=== PATIENT | female | born 1990 | race American Indian/Alaskan Native ===

== ENCOUNTER 2018-05-14 02:23 | Emergency (ER) | payer SELFPAY ==
[2018-05-14 02:35] VITALS: BMI 26.4
[2018-05-14 02:36] VITALS: TEMP 98
--- NOTE | 2018-05-14 02:58 | ED PDOC ---
Arrival/HPI - General Chief Complaint: Palpitations Time Seen by Provider: 05/14/18 02:33 Historian: Patient - History of Present Illness Narrative History of Present Illness (Text): 05/14/18 02:53 Angie Zamora is a 27 year old female who presents to the Emergency department complaining of palpitations. Patient states she has been experiencing cold-like symptoms for over a week and took Theraflu this evening. Patient states she went to bed and began experiencing palpitations, shaking, and generalized weakness. Patient reports a remote history of anxiety and denies any family history of cardiac disease. Patient denies any fever, chills, chest pain, shortness of breath, nausea, vomiting, neck pain, headache, dizziness, or any other complaints. Symptom Onset: Gradual Symptom Course: Unchanged Activities at Onset: Light Context: Home Past Medical History - Provider Review Nursing Documentation Reviewed: Yes - Infectious Disease Hx of Infectious Diseases: None - Renal Hx Kidney Stones: Yes - Psychiatric Hx Substance Use: No - Surgical History Other/Comment: colonscopy/endoscopy - Anesthesia Hx Anesthesia: Yes Family/Social History - Physician Review Nursing Documentation Reviewed: Yes Family/Social History: Unknown Family HX Smoking Status: Never Smoked Hx Alcohol Use: Yes Frequency of alcohol use: Socially Hx Substance Use: No Allergies/Home Meds Allergies/Adverse Reactions: Allergies seafood Allergy (Uncoded 05/14/18 02:40) RASH Home Medications: Home Meds Medication Instructions Recorded Confirmed RX: No Known Home Med 05/14/18 05/14/18 Review of Systems - Physician Review All systems were reviewed & negative as marked: Yes - Review of Systems Constitutional: Other (+generalized weakness, +shaking). absent: Fevers Eyes: Normal ENT: Normal Respiratory: Normal. absent: SOB, Cough Cardiovascular: Palpitations. absent: Chest Pain Gastrointestinal: Normal. absent: Abdominal Pain, Diarrhea, Nausea, Vomiting Genitourinary Female: Normal. absent: Dysuria, Frequency, Hematuria, Urine Output Changes Musculoskeletal: Normal Skin: Normal Neurological: Normal Endocrine: Normal Hemo/Lymphatic: Normal Psychiatric: Normal Physical Exam Vital Signs Reviewed: Yes Vital Signs Temp Pulse Resp BP Pulse Ox 05/14/18 02:35 98.0 F 132 H 20 127/85 100 Temperature: Afebrile Blood Pressure: Normal Pulse: Tachycardic Respiratory Rate: Normal Appearance: Positive for: Well-Appearing, Non-Toxic, Comfortable Pain Distress: None Mental Status: Positive for: Alert and Oriented X 3 - Systems Exam Head: Present: Atraumatic, Normocephalic Pupils: Present: PERRL Extroacular Muscles: Present: EOMI Conjunctiva: Present: Normal Mouth: Present: Moist Mucous Membranes Neck: Present: Normal Range of Motion Respiratory/Chest: Present: Clear to Auscultation, Good Air Exchange. No: Respiratory Distress, Accessory Muscle Use Cardiovascular: Present: Regular Rate and Rhythm, Normal S1, S2. No: Murmurs Abdomen: No: Tenderness, Distention, Peritoneal Signs Back: Present: Normal Inspection Upper Extremity: Present: Normal Inspection. No: Cyanosis, Edema Lower Extremity: Present: Normal Inspection. No: Edema Neurological: Present: GCS=15, CN II-XII Intact, Speech Normal Skin: Present: Warm, Dry, Normal Color. No: Rashes Psychiatric: Present: Alert, Oriented x 3, Normal Insight, Normal Concentration Medical Decision Making ED Course and Treatment: 05/14/18 02:54 Impression: 27 year old female complaining of palpitations, generalized weakness, and shaking. Plan: -- EKG -- Labs, cardiac enzymes, TSH, T4, D-dimer -- Rapid influenza -- Reassess and disposition Prior Visits: Notes and results from previous visits were reviewed. Progress Notes: Reviewed EKG, sinus tachycardia at 112 bpm. Non-specific T wave changes. 05/14/18 05:10 On re-evaluation, patient feels better and is in no acute distress. I have discussed the results and plan with the patient, who expresses understanding. Patient in agreement with plan to be discharged home. Patient is stable for discharge. Patient was instructed to follow up with physician or return if symptoms worsen or new concerning symptoms arise. - Lab Interpretations I have reviewed the lab results: Yes - EKG Interpretation Interpreted by ED Physician: Yes Type: 12 lead EKG - Scribe Statement The provider has reviewed the documentation as recorded by the Thor Correa Provider Scribe Attestation: All medical record entries made by the Scribe were at my direction and personally dictated by me. I have reviewed the chart and agree that the record accurately reflects my personal performance of the history, physical exam, medical decision making, and the department course for this patient. I have also personally directed, reviewed, and agree with the discharge instructions and disposition. Disposition/Present on Arrival - Present on Arrival Any Indicators Present on Arrival: No History of DVT/PE: No History of Uncontrolled Diabetes: No Urinary Catheter: No History of Decub. Ulcer: No History Surgical Site Infection Following: None - Disposition Have Diagnosis and Disposition been Completed?: Yes Diagnosis: Anxiety Disposition: HOME/ ROUTINE Disposition Time: 05:14 Condition: GOOD Discharge Instructions (ExitCare): Anxiety, Adult (DC) Referrals: PCP,NO [Primary Care Provider] - Follow up with primary Forms: [employer] (Mohawk)
[2018-05-14 03:18] LABS: BASO # 0.02 K/mm3 (0.0-2.0); BASO % 0.3 % (0.0-3.0); EOS # 0.1 (0.0-0.7); EOS % 1.4 % (1.5-5.0); GRAN # 3.52 (1.4-6.5); GRAN % 53.4 % (50.0-68.0); HEMOGLOBIN 12.5 g/dL (12.0-16.0); LYMPH # 2.2 (1.2-3.4); LYMPH % 32.6 % (22.0-35.0); MEAN CELL VOLUME 89.9 fl (80.0-105.0); MEAN CORPUSCULAR HEMOGLOBIN 30.2 pg (25.0-35.0); MEAN CORPUSCULAR HGB CONC 33.6 g/dl (31.0-37.0); MEAN PLATELET VOLUME 10.6 fl (7.0-11.0); MONO # 0.8 (0.1-0.6); MONO % 12.3 % (1.0-6.0); RBC 4.14 10^6/uL (3.5-6.1); RED CELL DISTRIBUTION WIDTH 12.3 % (11.5-14.5); WHITE BLOOD COUNT 6.6 10^3/uL (4.5-11.0)
[2018-05-14 03:26] LABS: ALB/GLOB RATIO 1.4 (1.1-1.8); ALBUMIN 4.6 g/dL (3.0-4.8); BLOOD UREA NITROGEN 16 mg/dL (7-21); CALCIUM 9.4 mg/dL (8.4-10.5); GFR NON-AFRICAN AMERICAN > 60
[2018-05-14 03:37] LABS: TROPONIN I < 0.01 ng/mL
[2018-05-14 03:43] LABS: T4 11.5 ug/dL (5.5-11.0)
[2018-05-14 03:47] LABS: ALT/SGPT 29 U/L (7-56); AST/SGOT 33 U/L (14-36); CK-MB 1.5 ng/mL (0.0-3.6)
[2018-05-14 05:25] VITALS: BP 112/62; PULSE 83; RESP 17; O2SAT 100
--- NOTE | 2018-05-14 10:51 | CARD ---
APPROVED REPORT Date of service: 05/14/2018 EKG Measurement Heart [id number] <Conclusion> Sinus tachycardia NSSTW changes
== END 2018-05-14 05:24 | disposition home or self-care (01) ==
LOC: ED 02:23
DX: F41.9 Anxiety disorder, unspecified (principal)

== ENCOUNTER 2018-05-15 00:04 | Emergency (ER) | payer SELFPAY ==
[2018-05-15 00:05] VITALS: BMI 26.4
[2018-05-15 00:36] VITALS: RESP 18; TEMP 98.7; O2SAT 100
--- NOTE | 2018-05-15 00:46 | ED PDOC ---
Arrival/HPI - General Chief Complaint: Back Pain Time Seen by Provider: 05/15/18 00:34 Historian: Patient - History of Present Illness Narrative History of Present Illness (Text): 05/15/18 00:46 27 year old female, with no significant past medical history, presents to the Emergency department complaining of generalized weakness associated with left- sided chest pain that worsens with deep breaths. Patient was seen yesterday for similar symptoms. The patient denies any trauma, fever, chills, shortness of breath, abdominal pain, nausea, vomiting, diarrhea, urinary symptoms, back pain, neck pain, headache, dizziness, or any other complaints. Symptom Onset: Gradual Symptom Course: Unchanged Activities at Onset: Light Context: Home Past Medical History - Provider Review Nursing Documentation Reviewed: Yes - Infectious Disease Hx of Infectious Diseases: None - Renal Hx Kidney Stones: Yes - Psychiatric Hx Substance Use: No - Surgical History Other/Comment: colonscopy/endoscopy - Anesthesia Hx Anesthesia: Yes Family/Social History - Physician Review Nursing Documentation Reviewed: Yes Family/Social History: No Known Family HX Smoking Status: Never Smoked Hx Alcohol Use: Yes Hx Substance Use: No Allergies/Home Meds Allergies/Adverse Reactions: Allergies seafood Allergy (Uncoded 05/14/18 02:40) RASH Review of Systems - Physician Review All systems were reviewed & negative as marked: Yes - Review of Systems Constitutional: absent: Fevers, Other (Chills) Respiratory: absent: SOB Cardiovascular: Chest Pain Gastrointestinal: absent: Abdominal Pain, Diarrhea, Nausea Genitourinary Female: absent: Dysuria, Frequency, Hematuria Musculoskeletal: absent: Back Pain, Neck Pain Neurological: Other (generalized weakness). absent: Headache, Dizziness Physical Exam Vital Signs Reviewed: Yes Vital Signs Temp Pulse Resp BP Pulse Ox 05/15/18 00:36 98.7 F 85 18 129/53 L 100 Temperature: Afebrile Blood Pressure: Normal Pulse: Regular Respiratory Rate: Normal Appearance: Positive for: Well-Appearing, Non-Toxic, Comfortable Pain Distress: None Mental Status: Positive for: Alert and Oriented X 3 - Systems Exam Head: Present: Atraumatic, Normocephalic Pupils: Present: PERRL Extroacular Muscles: Present: EOMI Conjunctiva: Present: Normal Mouth: Present: Moist Mucous Membranes Neck: Present: Normal Range of Motion Respiratory/Chest: Present: Clear to Auscultation, Good Air Exchange. No: Respiratory Distress, Accessory Muscle Use Cardiovascular: Present: Regular Rate and Rhythm, Normal S1, S2. No: Murmurs Abdomen: No: Tenderness, Distention, Peritoneal Signs Back: Present: Normal Inspection Upper Extremity: Present: Normal Inspection. No: Cyanosis, Edema Lower Extremity: Present: Normal Inspection. No: Edema Neurological: Present: GCS=15, CN II-XII Intact, Speech Normal Skin: Present: Warm, Dry, Normal Color. No: Rashes Psychiatric: Present: Alert, Oriented x 3, Normal Insight, Normal Concentration Medical Decision Making ED Course and Treatment: 05/15/18 00:46 Impression: 27 year old female presents complaining of generalized weakness and left-sided chest pain. Plan: -- CT chest, abd, and pelvis IV Contrast -- Toradol -- Reassess and disposition Prior Visits: Notes and results from previous visits were reviewed. Progress Notes: PROCEDURE: CTA OF THE CHEST WITH IV CONTRAST Electronically signed on May 15, 2018 3:32:16 AM EST by: Joe Vincent M.D. IMPRESSION: Minimal amount of free pelvic fluid. Ruptured follicle/corpus luteum cyst of the left ovary. No evidence of acute abdominal or pelvic pathology 05/15/18 03:48 On reevaluation the patient is in no acute distress. I have discussed the results and plan with the patient, who expresses understanding. Patient given the opportunity to ask question, all questions were answered and there is agreement with the plan to discharge the patient home. Patient is stable for discharge. Patient was instructed to follow up with physician/clinic in 1-2 days or return if symptoms persist/worsen or new concerning symptoms arise. - Scribe Statement The provider has reviewed the documentation as recorded by the Thor Srivastava Provider Scribe Attestation: All medical record entries made by the Thor were at my direction and personally dictated by me. I have reviewed the chart and agree that the record accurately reflects my personal performance of the history, physical exam, medical decision making, and the department course for this patient. I have also personally directed, reviewed, and agree with the discharge instructions and disposition. Disposition/Present on Arrival - Present on Arrival Any Indicators Present on Arrival: No History of DVT/PE: No History of Uncontrolled Diabetes: No Urinary Catheter: No History of Decub. Ulcer: No History Surgical Site Infection Following: None - Disposition Have Diagnosis and Disposition been Completed?: Yes Diagnosis: Back pain, Ovarian cyst Disposition: HOME/ ROUTINE Disposition Time: 03:50 Condition: GOOD Discharge Instructions (ExitCare): Ovarian Cysts, Upper Back Pain Prescriptions: Naproxen [Naprosyn Tab] 375 mg PO BID #12 tab Referrals: Belén Stern MD [Medical Doctor] - Follow up with primary Forms: [facility] (Vietnamese), WORK NOTE
[2018-05-15] MEDS ORDERED: Iohexol 350 MG/100 ML VIAL ONE (01:16)
[2018-05-15 04:14] VITALS: BP 127/89; PULSE 89
--- NOTE | 2018-05-15 09:41 | CT ---
Date of service: 05/15/2018 PROCEDURE: CT Chest, Abdomen and Pelvis with intravenous contrast HISTORY: left chest and back pain COMPARISON: None available. TECHNIQUE: IV dose administered: Radiation dose: Total exam DLP = 595.16 mGy-cm. This CT exam was performed using one or more of the following dose reduction techniques: Automated exposure control, adjustment of the mA and/or kV according to patient size, and/or use of iterative reconstruction technique. FINDINGS: CT CHEST WITH CONTRAST: LUNGS: Clear. No nodule, mass or consolidation. MEDIASTINUM: Unremarkable. Normal caliber aorta and pulmonary arterial trunk. No aortic dissection. Normal size heart. LYMPH NODES: Unremarkable. PLEURA: Unremarkable. No pneumothorax. No pleural fluid. BONES: Unremarkable. OTHER FINDINGS: None. CT ABDOMEN AND PELVIS: LIVER: Unremarkable. No gross lesion or ductal dilatation. GALLBLADDER AND BILE DUCTS: Unremarkable. PANCREAS: Unremarkable. No gross lesion or ductal dilatation. SPLEEN: Unremarkable. ADRENALS: Unremarkable. No mass. KIDNEYS AND URETERS: Unremarkable. No hydronephrosis. No solid mass. VASCULATURE: No aortic atherosclerotic calcification or mural plaque present. Unremarkable. No aortic aneurysm. BOWEL: Unremarkable. No obstruction. No gross mural thickening. APPENDIX: Normal appendix. PERITONEUM: Unremarkable. No free fluid. No free air. LYMPH NODES: Unremarkable. No enlarged lymph nodes. BLADDER: Unremarkable. REPRODUCTIVE: 1.8 centimeter left ovarian follicle. BONES: No acute fracture. OTHER FINDINGS: None. IMPRESSION: No aortic dissection.
== END 2018-05-15 03:58 | disposition home or self-care (01) ==
LOC: ED 00:04
DX: N83.202 Unspecified ovarian cyst, left side (principal); M54.9 Dorsalgia, unspecified
CPT/HCPCS: 71260; 74177; 96374; 99283; J1885; Q9967

== ENCOUNTER 2018-10-10 03:20 | Emergency (ER) | payer SELFPAY ==
[2018-10-10 03:21] VITALS: BMI 26.4
[2018-10-10] MEDS ORDERED: Sodium Chloride 0.9% 500 ML IV STA (03:51)
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
[2018-10-10 06:16] VITALS: BP 122/68; PULSE 88; RESP 17; TEMP 98.2; O2SAT 98
== END 2018-10-10 06:16 | disposition home or self-care (01) ==
LOC: ED 03:20
DX: G43.909 Migraine, unspecified, not intractable, without status migrainosus (principal)
CPT/HCPCS: 96374; 99285; J1885; J7040